=== PATIENT | female | born 1940 | race Caucasian/White ===

== ENCOUNTER 2018-02-28 11:00 | Inpatient (IN) ==
[2018-02-28 13:27] LABS: Appearance,Urine CLOUDY; Bilirubin,Urine NEG (NEG); Color,Urine YELLOW; Glucose,Urine (UA) NEGATIVE (NEG); Leukocyte Esterase,Urine NEG /uL (NEG); Protein,Urine NEG (NEG); Specific Gravity,Urine 1.025 (1.000-1.035); Urine Blood NEG mg/dL (<0.03); Urobilinogen,Urine NEG (NEG)
[2018-02-28 13:47] LABS: Basophils # (Auto) 0 K/mcL (0.0-0.3); Basophils % (Auto) 0.2 % (0.0-2.0); Eosinophils # (Auto) 0.1 K/mcL (0.0-0.7); Eosinophils % (Auto) 0.9 % (0.0-7.0); Granulocytes % (Auto) 77.1 % (38.0-78.0); Lymphocytes # (Auto) 1.5 K/mcL (1.5-4.8); Lymphocytes % (Auto) 16.8 % (15.5-49.0); Mean Cell Volume 89.7 fL (80.0-100.0); Mean Corpuscular HGB Conc 32.8 g/dL (31.0-36.0); Mean Corpuscular Hemoglobin 29.4 pg (26.0-34.0); Monocytes # (Auto) 0.4 K/mcL (0.1-0.9); Platelet Count 281 K/mcL (140-440); RBC 4.98 M/mcL (4.00-5.20); Red Cell Distribution Width 14.1 % (11.5-14.5)
[2018-02-28 14:17] LABS: Blood Urea Nitrogen 24 mg/dl (8-23)
[2018-03-03] MEDS ORDERED: SCOPOLAMINE 1 PATCH PATCH TOPICAL PRN (00:01)
[2018-03-03] MEDS ORDERED: IPRATROPIUM/ALBUTEROL 3 ML AMPUL.NEB NEB PRN ×2 (00:01→12:22)
[2018-03-03] MEDS ORDERED: KETOROLAC 30 MG, ROPIVACAINE HCL/PF 49.5 ML, EPINEPHrine 0.5 MG, 0.9 % SODIUM CHLORIDE ... IV SCH (07:00)
[2018-03-03] MEDS ORDERED: ceFAZolin 1 GM VIAL IV SCH (07:00)
[2018-03-03] MEDS ORDERED: ACETAMINOPHEN 500 MG TABLET PO SCH (07:00)
[2018-03-03] MEDS ORDERED: CELECOXIB 200 MG CAPSULE PO SCH (07:00)
[2018-03-03] MEDS ORDERED: PREGABALIN 75 MG CAPSULE PO SCH (07:00)
[2018-03-03] MEDS ORDERED: oxyCODONE 10 MG TAB.ER.12H PO SCH (07:00)
[2018-03-03] MEDS ORDERED: PROPOFOL 200 MG/20 ML VIAL IV ONE (11:25)
[2018-03-03] MEDS ORDERED: fentaNYL 100 MCG/2 ML VIAL IV ONE (11:25)
[2018-03-03] MEDS ORDERED: ONDANSETRON 4 MG/2 ML VIAL IV ONE (11:25)
[2018-03-03] MEDS ORDERED: TRANEXAMIC ACID 1,000 MG/10 ML VIAL IV ONE ×2 (11:25→12:47)
[2018-03-03] MEDS ORDERED: LIDOCAINE HCL/PF 100 MG/5 ML SYRINGE IV ONE (11:25)
[2018-03-03] MEDS ORDERED: GLYCOPYRROLATE 0.2 MG/ML VIAL IV ONE (11:25)
[2018-03-03] MEDS ORDERED: MIDAZOLAM 5 MG/5 ML VIAL IV ONE (11:25)
[2018-03-03] MEDS ORDERED: DEXAMETHASONE 10 MG/ML VIAL IV ONE (11:25)
[2018-03-03] MEDS ORDERED: ROPIVACAINE HCL/PF 20 ML VIAL IJ ONE (11:25)
[2018-03-03] MEDS ORDERED: GENTAMICIN SULFATE 800 MG/20 ML VIAL IR ONE (11:56)
[2018-03-03] MEDS ORDERED: diphenhydrAMINE 50 MG/ML VIAL IV PRN (12:22)
[2018-03-03] MEDS ORDERED: MEPERIDINE 25 MG/ML SYRINGE IV PRN (12:22)
[2018-03-03] MEDS ORDERED: METOPROLOL TARTRATE 5 MG/5 ML VIAL IV PRN (12:22)
[2018-03-03] MEDS ORDERED: ONDANSETRON 4 MG/2 ML VIAL IV PRN ×2 (12:22→12:47)
[2018-03-03] MEDS ORDERED: fentaNYL 100 MCG/2 ML VIAL IV PRN (12:22)
[2018-03-03] MEDS ORDERED: PROMETHAZINE 25 MG/ML VIAL IV PRN (12:22)
[2018-03-03] MEDS ORDERED: ATROPINE SULFATE 0.4 MG/ML VIAL IV PRN (12:22)
[2018-03-03] MEDS ORDERED: ePHEDrine 50 MG/ML AMPUL IV PRN (12:22)
[2018-03-03] MEDS ORDERED: FLUMAZENIL 0.1 MG/ML ML IV PRN (12:22)
[2018-03-03] MEDS ORDERED: NALOXONE HCL 0.4 MG/ML VIAL IV PRN (12:22)
[2018-03-03] MEDS ORDERED: HYDROmorphone 2 MG/ML VIAL IV PRN ×2 (12:22→12:47)
[2018-03-03] MEDS ORDERED: METHOCARBAMOL 1,000 MG/10 ML VIAL IV PRN (12:22)
[2018-03-03] MEDS ORDERED: LACTATED RINGERS 1,000 ML IV SCH (12:30)
[2018-03-03] MEDS ORDERED: MAGNESIUM HYDROXIDE 30 ML ORAL.SUSP PO PRN (12:47)
[2018-03-03] MEDS ORDERED: TEMAZEPAM 15 MG CAPSULE PO PRN (12:47)
[2018-03-03] MEDS ORDERED: BISACODYL 10 MG SUPP.RECT PR PRN (12:47)
[2018-03-03] MEDS ORDERED: POLYETHYLENE GLYCOL 3350 17 GM PACKET PO PRN (12:47)
[2018-03-03] MEDS ORDERED: BENZOCAINE/MENTHOL 1 LOZENGE PO PRN (12:47)
[2018-03-03] MEDS ORDERED: ACETAMINOPHEN 325 MG TABLET PO PRN (12:47)
[2018-03-03] MEDS ORDERED: FLEETS ADULT ENEMA PR PRN (12:47)
--- NOTE | 2018-03-03 12:47 | Brief Operative Note ---
Date of procedure: 03/03/18 Pre-op diagnosis: right knee djd Post-op diagnosis: same Procedure: right robotic tka Grafts/Implants: Yes Anesthesia: ELI Surgeon: Tommy Matias Compliance Lead: Juan Alberto Estimated blood loss (cc): 20 Tourniquet Time (Minutes): 40 Specimens Removed/Pathology: none sent Condition: stable Disposition: PACU
--- NOTE | 2018-03-03 13:33 | XRay Report ---
CLINICAL INFORMATION: Postsurgical follow-up TECHNIQUE: AP and lateral right knee COMPARISON: None. FINDINGS: Status post right total knee arthroplasty. Alignment is anatomic. There is postsurgical soft tissue and intra-articular gas IMPRESSION: Status post right total knee arthroplasty Interpreted and Authenticated by: Angel Rondon 03/03/18
--- NOTE | 2018-03-03 13:52 | Operative Note ---
DATE OF OPERATION: 03/03/2018 PREOPERATIVE DIAGNOSIS: Right knee degenerative arthritis. POSTOPERATIVE DIAGNOSIS: Right knee degenerative arthritis. PROCEDURE: Right total knee arthroplasty. SURGEON: Tommy Matias MD CABLE WORKER HELPER: Juan Alberto PA-C ANESTHESIA: General LMA anesthesia. COMPLICATIONS: None. DESCRIPTION OF PROCEDURE: The patient was brought to the operating room and put supine on the operating table. A timeout was performed and we confirmed the right knee as the operative site by x-ray, consent form and initials on the skin. The patient then had the leg exsanguinated, the tourniquet inflated and Ioban placed over the skin. We made a midline incision and of the mid vastus approach to the knee. Once this was done, we then inspected the knee showing severe arthritis in both medial and lateral compartments. At this point, we proceeded with a total knee arthroplasty. Once done, we then placed two pins above and below the knee, registered center of hip rotation, registered medial and lateral malleoli. Intraarticular pins were registered as well as 30 points on the femur and the tibia. Once registered, we balanced the knee both in 90 degrees of flexion and 15 degrees of flexion. This was stable to varus valgus stress. We measured the full extension. The full extension was +3 degrees and valgus of 5 degrees. At this point, we proceeded with adjusting the implants to match her anatomy and tensioned the ligaments. Once done, we then brought in the robot, made our tibial cut and then we made the femoral cuts. After the robot was used to make these cuts perfectly we then irrigated and removed the bony fragments, removed osteophytes and spurs. We then tapped into place the tibial baseplate as it was set with rotation using the robot to make external rotation of the tibial component perfect. We then placed the femoral component as far lateral as possible and then we placed an 11 poly. The 11 poly was too tight. It had a negative 6 degrees of extension and 2 degrees of varus. At this point, we placed a 9 mm poly. This gave us 2 mm of flexion and 2 degrees of varus. We then prepared the patella. It measured a total thickness of 20 mm. This was cut to 13 mm and then we placed a 29 mm patellar button. Once this was done, we then cemented into place all the components and the size as listed. The bone was prepared with pulse lavage and CarboJet to clean the bone. Once these were cemented into place and excess cement was removed, a 9 mm poly was placed and a 29 mm patellar button. We then positioned the knee at 40 degrees of flexion and kept that there until all components were dry. We then reinspected and took the knee through range of motion. We irrigated thoroughly and then closed the mid vastus approach with #1 Stratafix x2 sutures. We closed the skin with 2-0 Vicryl and adhesive closure. The portals were closed with 4-0 nylon and a sterile bandage. The patient tolerated this well. There was no complication. RBH:brittney Job ID: [id number] Doc ID: [id number] Tommy Matias MD
[2018-03-03] MEDS: 0.45 % SODIUM CHLORIDE 1,000 ML IV SCH (14:00)
[2018-03-03] MEDS: 0.9 % SODIUM CHLORIDE 10 ML SYRINGE IV SCH ×2 (15:56→22:07)
[2018-03-03] MEDS: KETOROLAC 15 MG/ML VIAL IV SCH (18:51)
[2018-03-03] MEDS: ceFAZolin 1 GM VIAL IV SCH (19:42)
[2018-03-03] MEDS: ASPIRIN 325 MG ENTERIC COATED TABLET PO SCH (20:32)
[2018-03-03] MEDS: DOCUSATE SODIUM 100 MG CAPSULE PO SCH (20:33)
[2018-03-03] MEDS ORDERED: SENNOSIDES 1 TABLET PO SCH (21:00)
[2018-03-03] MEDS ORDERED: DOCUSATE SODIUM 100 MG CAPSULE PO SCH (21:00)
[2018-03-03] MEDS ORDERED: ESTROGENS, CONJUGATED 0.9 MG TABLET PO SCH (21:00)
[2018-03-04] MEDS: KETOROLAC 15 MG/ML VIAL IV SCH ×3 (00:12→13:32)
[2018-03-04] MEDS: 0.45 % SODIUM CHLORIDE 1,000 ML IV SCH (00:12)
[2018-03-04] MEDS: ceFAZolin 1 GM VIAL IV SCH (03:24)
[2018-03-04] MEDS: 0.9 % SODIUM CHLORIDE 10 ML SYRINGE IV SCH (05:44)
[2018-03-04] MEDS: oxyCODONE/APAP 5/325MG TABLET PO PRN ×2 (06:38→13:23)
--- NOTE | 2018-03-04 07:48 | Orthopedic Progress Note ---
Subjective Patient information: Note initiated : 03/04/18 at 7:48 am Service Date, if different from initiated Date: [] Patient: Nika Lawson 77 y/o F admitted on 03/03/18 for Right Total Knee Arthroplasty Darin. Chief Complaint: Pt is stable this morning on post operative day 1 without any significant concerns or complaints. Patients vital signs have remained stable. Patients dressing is dry and is grossly instact from a neurovascular and motor standpoint. Patients 10 point ROS is otherwise negative. [] Objective Vital signs: Vital Signs Temp Pulse Resp BP BP Pulse Ox 03/04/18 07:04 98.1 F 83 12 143/76 94 03/04/18 05:00 95 03/04/18 04:00 98.2 F 77 12 135/73 95 03/04/18 00:32 96 03/04/18 00:00 98.5 F 84 12 134/71 96 03/03/18 21:13 93 03/03/18 20:30 104 H 18 136/74 96 03/03/18 20:00 97.5 F 98 H 12 126/73 96 03/03/18 17:00 96 03/03/18 16:11 132/77 96 03/03/18 15:56 135/80 96 03/03/18 15:23 98 03/03/18 14:56 147/82 96 03/03/18 14:41 153/81 97 03/03/18 14:26 147/83 96 03/03/18 14:11 147/80 95 03/03/18 13:56 151/77 95 03/03/18 13:40 96.9 F L 87 15 153/63 97 03/03/18 13:30 85 13 143/62 97 03/03/18 13:15 76 13 136/57 100 03/03/18 13:10 76 13 127/56 100 03/03/18 13:05 76 13 127/57 99 03/03/18 13:01 96.9 F L 78 16 119/55 99 03/03/18 09:39 97.9 F 73 16 153/103 94 Intake and Output 03/03/18 03/04/18 03/04/18 21:59 05:59 13:59 Intake Total 1150 / 1150 648 / 648 Output Total 900 / 900 900 / 900 600 / 600 Balance -900 / -900 250 / 250 48 / 48 Intake: IV 1000 / 1000 648 / 648 Sodium Chloride 0.45% 1,000 ml 1000 / 1000 648 / 648 @ 100 mls/hr IV .Q10H CORINNE Rx#: [id number] Oral 150 / 150 Output: Urine Catheter Amount 600 / 600 Straight 600 / 600 Void Amount 300 / 300 900 / 900 600 / 600 Other: Meal Dinner Percent of Meal Consumed 100% Feeding Ability Independent # Voids 1 1 1 Weight 170 lb Intake & Output: Intake & Output 03/03/18 03/04/18 03/04/18 21:59 05:59 13:59 Intake Total 1150 / 1150 648 / 648 Output Total 900 / 900 900 / 900 600 / 600 Balance -900 / -900 250 / 250 48 / 48 Weight 170 lb Intake: IV 1000 / 1000 648 / 648 Sodium Chloride 0.45% 1,000 ml 1000 / 1000 648 / 648 @ 100 mls/hr IV .Q10H CORINNE Rx#: [id number] Oral 150 / 150 Output: Urine Catheter Amount 600 / 600 Straight 600 / 600 Void Amount 300 / 300 900 / 900 600 / 600 Other: Meal Dinner Percent of Meal Consumed 100% Feeding Ability Independent # Voids 1 1 1 Incision: Yes healing Incision clean and dry: Yes Dressing: Yes clean Neurological exam IM: Yes motor sensory intact, Yes neurovascular intact Extremities exam IM: Yes Foot pink and warm, Yes neurovascular intact - Labs CBC & BMP: 03/04/18 04:00 02/28/18 11:36 Labs: Orthopedic Labs 02/28/18 11:36 PT 12.9 INR 1.0 APTT 36 03/04/18 02/28/18 04:00 11:36 Hgb 14.7 Hct 34.2 L 44.7 Assessment and Plan (1) Hx of total knee arthroplasty The patient has been educated regarding dressing care, Physical Therapy recommendations, home exercises, restrictions, and follow up appointments. The patient has had all necessary DME prescribed. The patient has remained relatively stable during their hospital course. Leave Dermabond patch intact until followup Status: Acute
--- NOTE | 2018-03-04 07:51 | Discharge Summary ---
Ortho Discharge - TKA - Patient Instructions Diet: Regular Diet Activity: activity as tolerated, weight bearing as tolerated Total Knee Protocol: For Total Knee: Start ROM CHINMAY with stationary bike or rocking chair. Work on gaining full extension of knee. Posterior dislocation precautions provided. Hip abductor strengthening and gait training instructions provided. Apply Cryocuff as instructed. Dressing Care: May shower in 2 days Additional Instructions: CPM for home use - Problem Maintenance (1) Hx of total knee arthroplasty Status: Acute - Follow Up Plan Follow Up Appointments: Juan Alberto PA-C [Physician Machine Guide [employer]] - 03/18/18 11:20 am Disposition: Home, Self-Care Prognosis: Good Rehab Potential: Good I certify that the patient requires SNF services: No Overall status at discharge: patient is progressing back to baseline - Orders For Discharge Prescriptions: Aspirin [Ecotrin] 325 mg PO BID #60 tab.ec Docusate Sodium [Colace] 100 mg PO BID #60 cap oxyCODONE/APAP [Percocet 5-325 mg] 1 - 2 tab PO Q4HP PRN #75 tab PRN Reason: Pain Level 3-6
[2018-03-04] MEDS ORDERED: MULTIVIT,THER IRON,CA,FA & MIN 1 TABLET PO SCH (09:00)
[2018-03-04] MEDS ORDERED: ASCORBIC ACID 500 MG TABLET PO SCH (09:00)
[2018-03-04] MEDS ORDERED: CALCIUM W/VIT D3 500 MG TABLET PO SCH (09:00)
[2018-03-04] MEDS ORDERED: ASPIRIN 325 MG TABLET.DR PO SCH (09:00)
[2018-03-04] MEDS: ASPIRIN 325 MG ENTERIC COATED TABLET PO SCH (09:33)
[2018-03-04] MEDS: DOCUSATE SODIUM 100 MG CAPSULE PO SCH (09:34)
[2018-03-04] MEDS ORDERED: PNEUMOCOCCAL 23-VAL P-SAC VAC 0.5 ML VIAL IM ONE (10:00)
== END 2018-03-04 14:30 | disposition home or self-care (01) | DRG 470 ==
LOC: MEDSUR 03-03 09:19
PROVIDERS: ADMIT Orthopaedic Surgery; ATTEND Orthopaedic Surgery